=== PATIENT | female | born 2000 | race Caucasian/White ===

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

== ENCOUNTER 2022-04-08 20:47 | Emergency (ER) | payer OTHER, SELFPAY ==
[2022-04-08 20:49] VITALS: BP 141/83; PULSE 102; RESP 19; TEMP 36.9; O2SAT 99
[2022-04-08 21:34] LABS: Basophils Percent Auto 0.3 % (0.2-1.2); Eosinophils Absolute Auto 0.2 K/mm3 (0-0.3); Eosinophils Percent Auto 1.6 % (0-4.4); Hematocrit 44.1 % (37.0-47.0); Hemoglobin 14.2 g/dL (12.0-15.0); Immature Granulocyte Absolute 0.03 K/mm3 (0.00-0.031); Immature Granulocyte Percent A 0.2 % (0-0.5); Lymphocytes Absolute Auto 3.51 K/mm3 (0.9-3.2); Lymphocytes Percent Auto 28.3 % (18.3-44.2); Mean Corpuscular HGB Conc 32.2 g/dl (32-36); Mean Corpuscular Hemoglobin 27.2 pg (26-34); Mean Corpuscular Volume 84.5 fl (80-100); Monocytes Absolute Auto 0.9 K/mm3 (0.1-0.6); Monocytes Percent Auto 7.3 % (2.6-8.5); Neutrophils Absolute Auto 7.7 K/mm3 (1.3-6.7); Neutrophils Percent Auto 62.3 % (45.5-73.1); Platelet Count Result 372 k/mm3 (150-375); Red Blood Count 5.22 M/mm3 (4.2-5.4); Red Cell Distribution Width 12.5 % (11.5-14.5); White Blood Count 12.4 K/mm3 (4.5-10.0)
--- NOTE | 2022-04-08 21:43 | ED.ABDPAIN ---
HPI - Abdominal Pain General Chief Complaint: Abdominal Pain Stated Complaint: abd pain x 4 days and diarrhea Time Seen by Provider: 04/08/22 21:30 History of Present Illness HPI narrative: 21-year-old female presenting to the emergency department for evaluation of of diffuse abdominal pain with associated diarrhea for the last 4 days. Patient reports nausea but no associated vomiting. Related Data Home Medications Medication Instructions Recorded Confirmed norgestimate 0.25 mg-ethinyl tablet 12/01/21 estradiol 35 mcg tablet (Estarylla) Allergies Allergy/AdvReac Type Severity Reaction Status Date / Time No Known Allergies Allergy Unknown Verified 04/08/22 20:48 Review of Systems Review of Systems: CONSTITUTIONAL: Denies fever, chills, or sweats. EYES: Denies visual changes, redness, or discharge. ENT: Denies rhinorrhea, congestion, sore throat, or otalgia. CARDIOVASCULAR: Denies chest pain, palpitations, or edema. RESPIRATORY: Denies cough or dyspnea. GASTROINTESTINAL: See HPI GENITOURINARY: Denies dysuria or hematuria. SKIN: Denies rash or itching. MUSCULOSKELETAL: Denies back pain, joint pain, or myalgia. NEUROLOGIC: Denies headache, numbness, or weakness. [facility] Past Medical History Medical History (Updated 04/09/22 @ 05:37 by Lam Graves MD) No pertinent past medical history Surgical History Surgical History No pertinent past surgical history Family History Family History Mother Family history unknown Father Family history unknown Social History Social History (Updated 12/01/21 @ 16:28 by CARLOS Blackwell, ) Smoking status: Never smoker Alcohol intake: never Substance use: never Additional living arrangements comments: Lives with boyfriend Gender identity (if verbalized by the patient): Female Sexual Orientation (if Verbalized by the Patient): Straight or Heterosexual Spiritual care concerns: No Exam Narrative: APPEARANCE: Well appearing, no pain, no distress, well-nourished. HEAD: normocephalic, atraumatic. EYES: PERRLA/EOMI, conjunctivae clear. NOSE: Normal no drainage NECK: Supple. No adenopathy, no masses. RESPIRATORY: Airway patent, respirations nonlabored. Clear to auscultation bilaterally, no rales, rhonchi, wheezing. CARDIOVASCULAR: Regular rate and rhythm without murmurs rubs or gallops. ABDOMINAL: Soft, midepigastric tenderness to palpation. MUSCULOSKELETAL: Moves all extremities. Strength/ROM intact, No edema, No calf tenderness. NEURO: Alert. Cranial nerves II through XII intact. Grossly intact SKIN: Warm, dry. Normal Color Course Course Emergency Course: Prior to completing her medical work-up patient states that she needs to leave the emergency department and will return at a later date to complete her medical work-up. Patient left AGAINST MEDICAL ADVICE. Vital Signs Vital signs: Vital Signs Temperature 98.5 F 04/08/22 20:49 Pulse Rate 102 H 04/08/22 20:49 Respiratory Rate 19 04/08/22 20:49 Blood Pressure 141/83 H 04/08/22 20:49 Pulse Oximetry 99 04/08/22 20:49 Oxygen Delivery Room Air 04/08/22 20:49 Temperature 98.5 F 04/08/22 20:49 Pulse Rate 102 H 04/08/22 20:49 Respiratory Rate 19 04/08/22 20:49 Blood Pressure 141/83 H 04/08/22 20:49 Pulse Oximetry 99 04/08/22 20:49 Oxygen Delivery Room Air 04/08/22 20:49 MDM - Abdominal Pain Lab Data Result diagrams: 04/08/22 21:25 04/08/22 21:25 Labs: Lab Results 04/08/22 04/08/22 Range/Units 21:25 21:25 WBC 12.4 H (4.5-10.0) K/mm3 RBC 5.22 (4.2-5.4) M/mm3 Hgb 14.2 (12.0-15.0) g/dL Hct 44.1 (37.0-47.0) % MCV 84.5 (80-100) fl MCH 27.2 (26-34) pg MCHC 32.2 (32-36) g/dl RDW 12.5 (11.5-14.5) % Plt Count 372 (150-375) k/mm3 MPV 10.0 (7.4-10.4) fl I
[2022-04-08 21:44] LABS: Alanine Aminotransferase 26 U/L (6-35); Albumin Level 5.1 g/dL (3.7-5.6); Alkaline Phosphatase 62 U/L (45-116); Anion Gap 13 mmol/L (8-16); Aspartate Amino Transferase 39 U/L (14-36); Bilirubin,Total 0.4 mg/dL (0.2-1.3); Blood Urea Nitrogen 19 mg/dL (8-21); Calcium 9.7 mg/dL (8.9-10.7); Carbon Dioxide 27 mmol/L (22-30); Chloride 99 mmol/L (98-107); Estimated CRCL calculation 113 ml/min; Estimated Glomerular Filt Rate > 60; Glucose 85 mg/dL (65-110); Lipase 83 U/L (23-300); Potassium 3.7 mmol/L (3.4-5.0); Sodium 139 mmol/L (134-143)
--- NOTE | 2022-04-08 21:56 | PC.NURSE ---
Upon arrival to room for medication/IV, pt states she is unable to continue abdominal pain workup at this time, she is needing to leave. Pt states she can come back another time. Discussed with patient if leaving prior to medical workup pt would be leaving against medical advice, pt verbalized understanding of information provided and signed AMA forms.
== END 2022-04-08 22:00 | disposition left against medical advice (07) ==
PROVIDERS: Emergency Provider Emergency Medicine; PCP Physician Assistant
DX: R10.9 Unspecified abdominal pain (principal)
CPT/HCPCS: 36415; 80053; 83690; 85025; 99283

== ENCOUNTER 2022-07-17 18:56 | Emergency (ER) | payer OTHER, SELFPAY ==
[2022-07-17 19:21] VITALS: BP 131/64; PULSE 77; RESP 18; TEMP 37.9; O2SAT 100
[2022-07-17 22:37] LABS: Appearance Urine Cloudy (Clear); Bilirubin Urine Negative (Negative); Blood Urine Negative (Negative); Color Urine Yellow (Yellow); Glucose Urine UA Negative (Negative); Ketones Urine Trace mg/dL (Negative); Leukocyte Esterase Ur Trace LEU/UL (Negative); Nitrate Urine Positive (Negative); Protein Urine Negative (Negative); Urobilinogen Urine 0.2 mg/dL (<2.0)
[2022-07-17 22:47] LABS: Bacteria Urine Trace /hpf; Mucus Urine Moderate /lpf; RBC Urine 0-2 /hpf (0-2); Squamous Epithelial Cell Urine Moderate /hpf (Few)
[2022-07-17 22:49] LABS: Add Urine Microscopic? YES
[2022-07-17 23:10] LABS: Influenza A QL RT-PCR Negative (Negative); Influenza B QL RT-PCR Negative (Negative); SARS-CoV-2 RNA PCR Negative
--- NOTE | 2022-07-17 23:34 | ED.GENADULT ---
HPI - General Adult General Chief complaint: Anxiety Stated complaint: two panic attacks Time Seen by Provider: 07/17/22 21:04 History of Present Illness HPI narrative: Patient is a 21-year-old female who presents emerged department with chief complaint of anxiety. Patient states that she has had a couple panic attacks and also has had a feeling as though she is worried that she may ultimately . Patient states she not had any suicidal or homicidal ideations patient also reports that she is had some dysuria and is concerned that she may have a UTI. Related Data Allergies Allergy/AdvReac Type Severity Reaction Status Date / Time No Known Allergies Allergy Unknown Verified 07/17/22 18:56 Review of Systems Review of Systems: A 10 system review of systems was completed on the patient and is negative except for what is stated in the HPI. Nursing and ancillary documentation was reviewed. [facility] Past Medical History Medical History No pertinent past medical history Surgical History Surgical History No pertinent past surgical history Family History Family History Mother Family history unknown Father Family history unknown Social History Social History Smoking status: Never smoker Alcohol intake: never Substance use: never Additional living arrangements comments: Lives with boyfriend Gender identity (if verbalized by the patient): Female Sexual Orientation (if Verbalized by the Patient): Straight or Heterosexual Spiritual care concerns: No Exam Narrative: GENERAL: Well-appearing, well-nourished, and in no acute distress. HEAD: Normocephalic, atraumatic. EYES: PERRLA and EOMI. ENT: Nares clear, no rhinorrhea or epistaxis. Mucous membranes moist. NECK: Supple. CHEST: Clear to auscultation. No respiratory distress. HEART: Regular rate and rhythm. No murmur heard. Normal peripheral pulses. ABDOMEN: Soft, nontender, nondistended, normal active bowel sounds. EXTREMITIES: Normal range of motion. No edema. SKIN: Warm, dry, no rash. NEURO: No focal deficits. Alert and oriented x3. PSYCH: Normal mood and affect. Course Vital Signs Vital signs: Vital Signs Temperature 37.9 C H 07/17/22 19:21 Pulse Rate 77 07/17/22 19:21 Respiratory Rate 18 07/17/22 19:21 Blood Pressure 131/64 07/17/22 19:21 Pulse Oximetry 100 07/17/22 19:21 Oxygen Delivery Room Air 07/17/22 19:21 Temperature 37.9 C H 07/17/22 19:21 Pulse Rate 77 07/17/22 19:21 Respiratory Rate 18 07/17/22 19:21 Blood Pressure 131/64 07/17/22 19:21 Pulse Oximetry 100 07/17/22 19:21 Oxygen Delivery Room Air 07/17/22 19:21 Medical Decision Making Vital Signs Vital Signs: Vital Signs Temperature 37.9 C H 07/17/22 19:21 Pulse Rate 77 07/17/22 19:21 Respiratory Rate 18 07/17/22 19:21 Blood Pressure 131/64 07/17/22 19:21 Pulse Oximetry 100 07/17/22 19:21 Oxygen Delivery Room Air 07/17/22 19:21 Temperature 37.9 C H 07/17/22 19:21 Pulse Rate 77 07/17/22 19:21 Respiratory Rate 18 07/17/22 19:21 Blood Pressure 131/64 07/17/22 19:21 Pulse Oximetry 100 07/17/22 19:21 Oxygen Delivery Room Air 07/17/22 19:21 Lab Data Labs: Lab Results 07/17/22 07/17/22 Range/Units 22:27 22:27 Urine Color Yellow (Yellow) Urine Appearance Cloudy H (Clear) Urine pH 7.0 (5.0-9.0) Ur Specific [place] 1.020 (1.001-1.035) Urine Protein Negative (Negative) mg/dL Urine Glucose (UA) Negative (Negative) mg/dL Urine Ketones Trace (Negative) mg/dL Ur Blood (Man) Negative (Negative) Urine Nitrate Positive H (Negative) Urine Bilirubin Negative (Negative) Urine Urobilinogen 0.2 (<2.0)
[2022-07-17] MEDS: CEPHALEXIN 500 MG CAPSULE PO (23:45)
[2022-07-17] MEDS: hydrOXYzine HCL 25 MG TABLET PO (23:45)
[2022-07-17 23:47] VITALS: BP 127/82; PULSE 87; RESP 16; O2SAT 99
== END 2022-07-17 23:47 | disposition home or self-care (01) ==
PROVIDERS: Emergency Provider Emergency Medicine; PCP Family Medicine
DX: F41.9 Anxiety disorder, unspecified (principal); N39.0 Urinary tract infection, site not specified; Z20.822 Contact with and (suspected) exposure to COVID-19
CPT/HCPCS: 81001; 81025; 87502; 99283; A9270; U0003; U0005

== ENCOUNTER 2023-01-15 20:04 | Emergency (ER) | payer OTHER, SELFPAY ==
[2023-01-15] VITALS (12 sets, daily range): BP systolic 108–146; BP diastolic 60–92; PULSE 77–103; RESP 12–19; TEMP 37; O2SAT 97–100
--- NOTE | ~2023-01-15 | US_ITS ---
EXAMINATION: US OB <= 14 weeks fetus DATE: 01/15/2023 22:40 INDICATION: Vaginal bleeding during first trimester TECHNIQUE: Real-time pelvic ultrasound utilizing transabdominal probe was performed. The elvira harman radiologist was not present for the study. COMPARISON: None. FINDINGS: The uterus measures 9.6 x 5.5 cm cm. There is an intrauterine gestational sac. A 4 mm yolk sac and f etal pole are identified. The crown rump length measures 3 mm, which correlates with an estimated ges tational age of 6 weeks and 0 days. heart motion appears to be evident on the cine grayscale im aging however per notation of telegraph dispatcher due to the small size of a pole was unable to be visu alized sufficiently for quantitation of heart rate by M-mode Doppler. There is a 14 x 8 x 2 mm anecho ic subchorionic hemorrhage along the gestational sac. The right ovary is not visualized. The left ovary measures 3.1 x 1.7 x 1.7 cm. After flow is identifi ed at the left ovary on color Doppler. Prominent around the periphery of a 1.7 cm corpus luteum cyst. There is no free fluid in the pelvis. IMPRESSION: 1. Single living fetus with visible heart motion on cine grayscale imaging but unable to be quantitat ed by M-mode Doppler. 2. Gestational age by ultrasound of 6 weeks 0 day(s) +/- 4 day(s) with ultrasound estimated date of delivery ([facility]) of 09/10/2023. 3. Small subchorionic hematoma. Reviewed, dictated and finalized at location A. IMPRESSION: 1. Single living fetus with visible heart motion on cine grayscale imaging but unable to be quantitated by M-mode Doppler. 2. Gestational age by ultrasound of 6 weeks 0 day(s) +/- 4 day(s) with ultraso und estimated date of delivery ([facility]) of 09/10/2023. 3. Small subchorionic hematoma.
--- NOTE | 2023-01-15 20:21 | PC.NURSE ---
medical office secretary notified to contact ultrasound.
--- NOTE | 2023-01-15 21:04 | ED.FEMALEGU ---
HPI - Female Genitourinary General Chief complaint: Vaginal Bleeding <Alexa Crum PA-C - Last Filed: 01/16/23 02:51> Stated complaint: nausea, positive home test <FRANCISCO Hill Last Filed: 01/16/23 02:51> Time Seen by Provider: 01/15/23 20:49 <Alexa Crum PA-C - Last Filed: 01/16/23 02:51> History of Present Illness HPI Narrative: 22-year-old female, , LMP 4/2 reports for evaluation of positive test and vaginal spotting for 3 days. Patient states she took an at-home test today that was positive, went to urgent care and was sent to the ED. She is currently on her second round of ABX form urgent care (PCN then amoxicillin) for strep throat, cultures are pending. She reports she has a smidge of a sore throat, and that her main reason to go to the urgent care originally was due to the nausea and abdominal pain. States she did not take a test at urgent care because the tests they had were . She reports her last period was normal. Her spotting the past 2-3 days has only been present when she wipes. States she has been wearing a pad w/o blood on the pad. Denies urinary complaints, headache, vision changes, edema, fever, body aches, chills, CP, SOB, lightheadedness. She denies concern for STDs, no vaginal discharge. Declines empiric treatment for STDs. <Alexa Crum PA-C - Last Filed: 01/16/23 02:51> Related Data Allergies/Adverse reactions: Allergies Allergy/AdvReac Type Severity Reaction Status Date / Time No Known Allergies Allergy Unknown Verified 01/15/23 21:49 <FRANCISCO Hill Last Filed: 01/16/23 02:51> Review of Systems Review of Systems: CONSTITUTIONAL: Denies fever, chills EYES: Denies visual changes, redness, or discharge. ENT: Denies rhinorrhea, congestion, sore throat, or otalgia. CARDIOVASCULAR: Denies chest pain, palpitations, or edema. RESPIRATORY: Denies cough or dyspnea. GASTROINTESTINAL: See HPI GENITOURINARY: Denies dysuria or hematuria. SKIN: Denies rash or itching. MUSCULOSKELETAL: Denies back pain, joint pain, or myalgia. NEUROLOGIC: Denies headache, numbness, dizziness, or weakness. PSYCHIATRIC: Denies anxiety or depression. <Alexa Crum PA-C - Last Filed: 01/16/23 02:51> [facility] Past Medical History Medical History: Medical History No pertinent past medical history <Alexa Crum PA-C - Last Filed: 01/16/23 02:51> Surgical History Surgical History: Surgical History No pertinent past surgical history <Alexa Crum PA-C - Last Filed: 01/16/23 02:51> Family History Family History: Family History Mother Family history unknown Father Family history unknown <Alexa Crum PA-C - Last Filed: 01/16/23 02:51> Social History Social History: Social History Smoking status: Never smoker Alcohol intake: never Substance use: never Additional living arrangements comments: Lives with boyfriend Gender identity (if verbalized by the patient): Female Sexual Orientation (if Verbalized by the Patient): Straight or Heterosexual Spiritual care concerns: No <Alexa Crum PA-C - Last Filed: 01/16/23 02:51> Exam Narrative: GENERAL: Well-appearing, in no acute distress. HEAD: Normocephalic EYES: PERRLA ENT: Nares clear. Mucous membranes moist. Oropharynx without tonsillar hypertrophy exudate or other lesions. No oropharynx erythema or edema. No uvular deviation. NECK: Supple. CHEST: No respiratory distress. Clear to auscultation, no adventitious breath sounds. HEART: Regular rate and rhythm. No murmur heard. Normal peripheral pulses. ABDOMEN: Soft, nontender, normal active bowel sounds. No guard
[2023-01-15 21:55] LABS: Appearance Urine Clear (Clear); Bilirubin Urine Negative (Negative); Blood Urine Negative (Negative); Color Urine Yellow (Yellow); Glucose Urine UA Negative (Negative); Ketones Urine Trace mg/dL (Negative); Leukocyte Esterase Ur Negative LEU/UL (Negative); Nitrate Urine Negative (Negative); Protein Urine Negative (Negative); Specific Grav Ur 1.022 (1.001-1.035)
[2023-01-15 21:59] LABS: Basophils Percent Auto 0.3 % (0.2-1.2); Eosinophils Absolute Auto 0.2 K/mm3 (0-0.3); Eosinophils Percent Auto 1.2 % (0-4.4); Hematocrit 43.2 % (37.0-47.0); Hemoglobin 14.7 g/dL (12.0-15.0); Immature Granulocyte Absolute 0.04 K/mm3 (0.00-0.031); Immature Granulocyte Percent A 0.3 % (0-0.5); Lymphocytes Percent Auto 19.4 % (18.3-44.2); Mean Corpuscular Hemoglobin 28.5 pg (26-34); Mean Corpuscular Volume 83.7 fl (80-100); Mean Platelet Volume 10.2 fl (7.4-10.4); Neutrophils Absolute Auto 8.7 K/mm3 (1.3-6.7); Neutrophils Percent Auto 70.8 % (45.5-73.1); Platelet Count Result 345 k/mm3 (150-375); Red Blood Count 5.16 M/mm3 (4.2-5.4); White Blood Count 12.4 K/mm3 (4.5-10.0)
[2023-01-15 22:05] LABS: Alanine Aminotransferase 17 U/L (6-35); Albumin Level 4.8 g/dL (3.5-5.1); Alkaline Phosphatase 52 U/L (38-126); Anion Gap 9 mmol/L (8-16); Aspartate Amino Transferase 24 U/L (14-36); Bilirubin,Total 0.4 mg/dL (0.2-1.3); Blood Urea Nitrogen 8 mg/dL (7-17); Carbon Dioxide 27 mmol/L (22-30); Chloride 100 mmol/L (98-107); Estimated CRCL calculation 130 ml/min; Estimated Glomerular Filt Rate > 60; Glucose 88 mg/dL (65-110); Potassium 3.7 mmol/L (3.4-5.0); Sodium 136 mmol/L (137-145)
[2023-01-15 22:10] LABS: Add Urine Microscopic? NO
== END 2023-01-15 23:53 | disposition home or self-care (01) ==
PROVIDERS: Emergency Medicine; Emergency Provider Physician Assistant; PCP Family Medicine
DX: O46.90 Antepartum hemorrhage, unspecified, unspecified trimester (principal); O26.899 Other specified pregnancy related conditions, unspecified trimester; R11.0 Nausea; Z3A.00 Weeks of gestation of pregnancy not specified
CPT/HCPCS: 36415; 76801; 80053; 81003; 81025; 84702; 85025; 85461; 86850; 86900; 86901; 99284

== ENCOUNTER 2023-08-07 17:01 | Observation (INO) | payer OTHER, SELFPAY ==
[2023-08-07 17:19] VITALS: BMI 34.0
--- NOTE | 2023-08-07 17:20 | OBADM ---
This patient, Emma Neville, admitted to the OB room OB Post 116 for observation. Patient/family oriented to hospital policies and general routines including ID bracelet, bed and alarms, visiting hours, pain management, procedures, bathroom and other care routines, personal items, smoking policy, room service/diet, and visiting hours. Patient/Family are encouraged to report perceived risks to care and to ask questions if they do not understand what they are told or what they should do.
[2023-08-07 17:30] VITALS: BP 116/67; PULSE 97
--- NOTE | 2023-08-07 17:43 | PC.NURSE ---
Dr. Bob notified of patient's arrival on unit and complaints of contractions. No vaginal bleeding or leaking of fluids. Orders received to send urinalysis and SVE.
[2023-08-07 17:45] VITALS: BP 118/70; PULSE 89
[2023-08-07 17:57] LABS: Appearance Urine Cloudy (Clear); Bacteria Urine 3+ /hpf; Bilirubin Urine Negative (Negative); Blood Urine Negative (Negative); Color Urine Yellow (Yellow); Glucose Urine UA Trace mg/dL (Negative); Ketones Urine Negative (Negative); Leukocyte Esterase Ur 2+ LEU/UL (Negative); Need Manual Microscopic Reviewed; Nitrate Urine Negative (Negative); Non Pathogenic Casts 0-2; Protein Urine Trace mg/dL (Negative); Specific Grav Ur 1.022 (1.001-1.035); Squamous Epithelial Cell Urine Moderate /hpf (Few); Urobilinogen Urine 0.2 mg/dL (<2.0); WBC Urine 51-100 /hpf
--- NOTE | 2023-08-07 17:58 | PC.NURSE ---
SVE- Closed/thick/high
[2023-08-07 18:01] VITALS: BP 118/70; PULSE 80
[2023-08-07 18:02] LABS: Add Urine Microscopic? YES
--- NOTE | 2023-08-07 18:09 | PC.NURSE ---
Dr. Bob notified of lab results, okay to discharge
--- NOTE | 2023-08-19 08:14 | PM.OBTRLD ---
OB - Triage/Final Diagnosis Visit Information Comments/Additional reasons for admission: I have assessed the risk for this patient, Emma Neville, and determined that she would benefit from observation care. Evaluation Laboratory results: Laboratory Tests 08/07/23 17:13 Urine Color Yellow Urine Appearance Cloudy H Urine pH 6.0 Ur Specific [place] 1.022 Urine Protein Trace Urine Glucose (UA) Trace H Urine Ketones Negative Ur Blood (Man) Negative Urine Nitrate Negative Urine Bilirubin Negative Urine Urobilinogen 0.2 Add Ur Microanalysis Reviewed Leukocyte Esterase Rfl 2+ H Urine RBC 6-10 H Urine WBC 51-100 H Ur Squamous Epith Cells Moderate Urine Bacteria 3+ H Urine Casts 0-2 Final Diagnosis (1) False labor: Code(s): O47.9 - False labor, unspecified Status: Acute
== END 2023-08-07 18:20 | disposition home or self-care (01) ==
PROVIDERS: Admitting Provider Obstetrics & Gynecology; PCP Family Medicine; Visit Provider Obstetrics & Gynecology
DX: O47.03 False labor before 37 completed weeks of gestation, third trimester (principal); Z3A.35 35 weeks gestation of pregnancy
CPT/HCPCS: 59025; 81001; 87086; 87088; G0378; G0379

== ENCOUNTER 2023-09-11 04:05 | Inpatient (IN) | payer OTHER, SELFPAY ==
[2023-09-11] VITALS (252 sets, daily range): BP systolic 93–146; BP diastolic 45–116; PULSE 63–180; RESP 16–19; TEMP 36.8–37.9; O2SAT 73–100; BMI 36.7
--- NOTE | 2023-09-11 04:33 | LDADM ---
This patient, Emma Neville, was admitted to Labor/Delivery/Recovery 106 on 09/11/23 at 04:05. Plans for labor, pain management and were discussed with patient. Patient/family oriented to hospital policies and general routines including ID bracelet, bed and alarms, visiting hours, pain management, procedures, bathroom and other care routines, personal items, smoking policy, room service/diet and guest tray routines, security routines, and visiting hours. Patient/Family are encouraged to report perceived risks to care and to ask questions if they do not understand what they are told or what they should do. See OBIX for further documentation.
[2023-09-11 04:39] LABS: Basophils Percent Auto 0.2 % (0.2-1.2); Eosinophils Absolute Auto 0.1 K/mm3 (0-0.3); Eosinophils Percent Auto 0.9 % (0-4.4); Hematocrit 34.8 % (37.0-47.0); Hemoglobin 10.9 g/dL (12.0-15.0); Immature Granulocyte Absolute 0.09 K/mm3 (0.00-0.031); Immature Granulocyte Percent A 0.7 % (0-0.5); Lymphocytes Absolute Auto 2.51 K/mm3 (0.9-3.2); Lymphocytes Percent Auto 18.3 % (18.3-44.2); Mean Corpuscular HGB Conc 31.3 g/dl (32-36); Mean Corpuscular Hemoglobin 25.7 pg (26-34); Mean Corpuscular Volume 82.1 fl (80-100); Mean Platelet Volume 11.6 fl (7.4-10.4); Monocytes Absolute Auto 0.9 K/mm3 (0.1-0.6); Monocytes Percent Auto 6.3 % (2.6-8.5); Neutrophils Absolute Auto 10.1 K/mm3 (1.3-6.7); Neutrophils Percent Auto 73.6 % (45.5-73.1); Platelet Count Result 251 k/mm3 (150-375); Red Blood Count 4.24 M/mm3 (4.2-5.4); Red Cell Distribution Width 14.9 % (11.5-14.5); White Blood Count 13.7 K/mm3 (4.5-10.0)
[2023-09-11] MEDS: LACTATED RINGERS 1,000 ML 125 ML IV CONT ×4 (05:45→23:41)
[2023-09-11] MEDS: AMPICILLIN 2 GM/NS 100 ML 2 GM/100 ML BAG IVPB ×2 (05:45→23:53)
[2023-09-11] MEDS: OXYTOCIN 30 UNITS/NS 500 ML 30 UNITS/500 ML BAG IV CONT (08:04)
--- NOTE | 2023-09-11 08:20 | WPDHPUPDATE1 ---
History and Physical Update Update Date/Time: 09/11/23 08:20 22-year-old 1 at term who presents with ruptured membranes. She is now in a starting into labor. She has painful contractions. She has had some cervical change. She is 3 cm, 50%, -2. She is stable. There is reassuring heart tones. She will begin Pitocin. Expectant management History and Physical has been reviewed, including an updated exam of the patient. There are NO changes in the patient's condition. Risks, benefits, and alternatives have been discussed and questions answered. Patient agrees to proceed with procedure.
[2023-09-11] MEDS: fentaNYL CITRATE INJ (*CRX) 100 MCG/2 ML VIAL IV PUSH (09:13)
[2023-09-11] MEDS: SODIUM CHLORIDE 0.9% IV 300 ML 600 ML I-UTERINE (10:03)
[2023-09-11] MEDS: fentaNYL CITRATE INJ (*CRX) 100 MCG/2 ML VIAL 50 MCG IV PUSH (10:22)
--- NOTE | 2023-09-11 10:22 | WPDANESEPP ---
Anes - Eval Pre Procedure Procedure: Labor epidural Date/Time: 09/11/23 10:22 Surgeon: Nadine Preop Diagnosis: Pain during labor Pre Op Diagnosis: Leaking, Contactions Patient Data Age: 22 Gender: F Height: 1.6 m Weight: 94 kg Last Vital Signs Temp 37.0 C 09/11/23 10:03 Pulse 151 H 09/11/23 10:16 Resp 19 09/11/23 10:03 BP 146/104 H 09/11/23 10:16 Pulse Ox 98 09/11/23 10:18 O2 Del Method Room Air 09/11/23 04:31 Allergies Allergy/AdvReac Type Severity Reaction Status Date / Time No Known Allergies Allergy Unknown Verified 09/11/23 04:40 Laboratory Tests 09/11/23 04:27 WBC 13.7 H K/mm3 (4.5-10.0) RBC 4.24 M/mm3 (4.2-5.4) Hgb 10.9 L D g/dL (12.0-15.0) Hct 34.8 L % (37.0-47.0) MCV 82.1 fl (80-100) MCH 25.7 L pg (26-34) MCHC 31.3 L g/dl (32-36) RDW 14.9 H % (11.5-14.5) Plt Count 251 k/mm3 (150-375) MPV 11.6 H fl (7.4-10.4) Immature Gran % (Auto) 0.7 H % (0-0.5) Neut % (Auto) 73.6 H % (45.5-73.1) Lymph % (Auto) 18.3 % (18.3-44.2) [place] % (Auto) 6.3 % (2.6-8.5) Eos % (Auto) 0.9 % (0-4.4) Baso % (Auto) 0.2 % (0.2-1.2) Lymph # (Auto) 2.51 K/mm3 (0.9-3.2) [place] # (Auto) 0.9 H K/mm3 (0.1-0.6) Eos # (Auto) 0.1 K/mm3 (0-0.3) Baso # (Auto) 0.0 K/mm3 (0.0-0.1) Abs Immat Gran (auto) 0.09 H K/mm3 (0.00-0.031) Absolute Neuts (auto) 10.1 H K/mm3 (1.3-6.7) Absolute Nucleated RBC 0.0 K/mm3 (0.0-0.012) Nucleated RBC % 0.0 % (0.0-0.2) RPR Pending Blood Type A Positive Antibody Screen Negative Patient hx anesthesia problems: none Family hx anesthesia problems: none Results Review: All pre-operative results and documents have been reviewed as part of the pre-operative evaluation. [facility] Past Medical History Medical History No pertinent past medical history Surgical History Surgical History No pertinent past surgical history Family History Family History Mother Family history unknown Father Family history unknown Social History Social History Smoking status: Never smoker Alcohol intake: never Substance use: never Do You Feel Safe in your Home?: Yes Lack of Transportation: No Lack of Food: Never True Current Housing: I Have Housing Concerned About Future Housing: No Difficulty Paying Gas/Electric Bills: No Difficulty Paying for Meds: No Currently Unemployed: No Education: High School Diploma/GED Difficulty w/ Childcare or Family Care: No Additional living arrangements comments: Lives with boyfriend Gender identity (if verbalized by the patient): Female Sexual Orientation (if Verbalized by the Patient): Straight or Heterosexual Spiritual care concerns: No Exam Day of Procedure 09/11/23 10:22 Patient weight: obese Heart: regular rate and rhythm Lungs: clear to auscultation Airway: Mallampati scale Neurological: alert and oriented
[2023-09-11] MEDS: SODIUM CHLORIDE 0.9% IV 1,000 ML 150 ML I-UTERINE (12:55)
[2023-09-11 16:56] LABS: Rapid Plasma Reagin Non-Reactive (NonReactive)
[2023-09-12] VITALS (17 sets, daily range): BP systolic 107–131; BP diastolic 60–78; PULSE 78–130; RESP 16–18; TEMP 36–36.6; O2SAT 98–100
[2023-09-12] MEDS: OXYTOCIN 30 UNITS/NS 500 ML 30 UNITS/500 ML BAG 999 UNITS IV CONT (00:12)
[2023-09-12] MEDS: fentaNYL CITRATE INJ (*CRX) 100 MCG/2 ML VIAL 50 MCG IV PUSH (00:20)
--- NOTE | 2023-09-12 00:31 | P.PCNOB_ITS ---
OB - Vaginal Delivery Note Procedure Delivery date: 09/12/23 Induction method: None Delivery augmentation: Pitocin Delivery monitor: External FHT and Internal Uterine Route of delivery: Laceration Description: Labial Delivery repair: vicryl Specimen: No Quantitative Blood Loss (ml): 300 Anesthesia type: Epidural Complications: No immediate complications [place] Baby Date of : 09/12/23 Time of : 00:10 Weeks of gestation at delivery: 40 gender: Female Weight (pounds): 7 Weight (ounces): 4 presentation: vertex score one minute: 9 score five minutes: 9
[2023-09-12] MEDS: OXYTOCIN 30 UNITS/NS 500 ML 30 UNITS/500 ML BAG 125 UNITS IV CONT (00:40)
--- NOTE | 2023-09-12 02:48 | OBPPTRN ---
Patient transferred to post room # 291 via wheelchair. Support person present. Oriented to unit, room, information board, rooming in, admission packet and security measures. Patient verbalizes understanding.
[2023-09-12] MEDS: WITCH HAZEL 40 PADS 1 PAD (03:03)
[2023-09-12] MEDS: BENZOCAINE 20% AER SPR (*SP) 56 GM CAN 1 SPRAY (03:03)
[2023-09-12] MEDS: IBUPROFEN 600 MG TABLET PO ×2 (04:30→19:30)
--- NOTE | 2023-09-12 07:56 | PM.OBPNVD ---
OB - PN: Subj Subjective Date/time seen: 09/12/23 07:56 Interval history: pp day 1 doing well OB - PN: Obj Data Labs 09/11/23 04:27 Labs: Laboratory Results - last 24 hr 09/11/23 04:27 RPR Non-reactive OB - PN A/P Plan day: 1 Plan: routine care Time Spent With Patient Time: Total time spent is greater than 50% in coordination of care (as documented) at patient's floor/unit and/or counseling patient: Review of Systems Review of Systems: All systems reviewed & are unremarkable except as noted in HPI and below Exam Const: General: cooperative, healthy appearing and comfortable Resp: Effort & Inspection: normal respiratory effort Cardio: Rate: regular rate Skin: General skin exam: normal color Neuro: General: patient oriented x3 Psych: Appearance: grossly normal
--- NOTE | 2023-09-12 09:26 | WPDANLDPN2 ---
Anes-Prog Note L&D Date/Time: 09/12/23 09:26 Comfortable throughout: labor and delivery Neuraxial method: epidural Epidural/Spinal procedure site: clean & non-tender Neuro status: Neuro function grossly intact. Cardiovascular status: normal Respiratory status: normal Airway patency: baseline Mental status: baseline Post-Op hydration status: normal Vital Signs: Last Vital Signs Temp 96.8 F L 09/12/23 08:25 Pulse 78 09/12/23 08:25 Resp 16 09/12/23 08:25 BP 107/68 09/12/23 08:25 Pulse Ox 99 09/12/23 08:25 O2 Del Method Room Air 09/12/23 03:00 Pain score (VAS): 0 I/O: Intake & Output 09/11/23 09/12/23 09/12/23 23:59 07:59 15:59 Intake Total 2000 Output Total 100 Balance 1999 - Post-procedural complaints: none Patient feedback: Patient satisfied with anesthetic care.
[2023-09-12] MEDS: ACETAMINOPHEN 325 MG TABLET 650 MG PO (19:30)
[2023-09-12] MEDS: POLYSACCHARIDE IRON COMPLEX 150 MG CAPSULE PO (19:30)
[2023-09-13 04:45] LABS: Hematocrit 28.4 % (37.0-47.0); Hemoglobin 8.7 g/dL (12.0-15.0)
--- NOTE | 2023-09-13 07:54 | PM.OBPNVD ---
OB - PN: Subj Subjective Date/time seen: 09/13/23 07:54 Interval history: pp day 1 doing well plab d/c home OB - PN: Obj Data Labs 09/13/23 04:11 Labs: Laboratory Results - last 24 hr 09/13/23 04:11 Hgb 8.7 L Hct 28.4 L OB - PN A/P Plan day: 2 Plan: routine care and discharge home Time Spent With Patient Time: Total time spent is greater than 50% in coordination of care (as documented) at patient's floor/unit and/or counseling patient: Review of Systems Review of Systems: All systems reviewed & are unremarkable except as noted in HPI and below Exam Const: General: cooperative and healthy appearing Chest: Chest palpation & inspection: normal inspection of the chest Cardio: Rate: regular rate GI: Inspection: normal to inspection Skin: General skin exam: normal color Neuro: General: patient oriented x3
--- NOTE | 2023-09-13 07:56 | PM.OBDSVD ---
DS: Admitting Diagnosis Discharge Date 09/13/23 Admitting Diagnosis Labor DS: Discharge Diagnosis Discharge Diagnosis (1) Vaginal delivery: Code(s): O80 - Encounter for full-term uncomplicated delivery Status: Acute OB - DS: Summary OB Procedures : None OB Procedures Intrapartum: Spontaneous Vag Delivery OB Procedures: : None Peripartum Data Laceration Description: Labial Time Spent with Patient Time attestation: Total time spent providing and/or coordinating discharge services: DS: Data Data Completed and Pending Labs on day of discharge: Labs from last 24 hours 09/13/23 04:11 Hgb 8.7 L Hct 28.4 L Discharge Plan Discharge Attending physician on discharge: Magaly Mccoy Discharging Clinician: Robyn Mcgill Patient Disposition: Home, Self-Care Activity: pelvic rest Diet: regular Patient Instructions: Antibiotic Form Stand Alone Forms: General Discharge Information Follow-up/Referrals: Magaly Mccoy MD [Physician] - 4 Weeks Discharge Medications: New ibuprofen 600 mg Tablet 600 mg PO Q6H PRN (Reason: Cramping) Qty: 30 0RF Date of admission: 09/11/23 04:05 Primary Care Provider: Álvaro,Jose Faulkner Admitting Provider: Magaly Mccoy Attending physician on admission: Magaly Mccoy Condition: Stable
[2023-09-13 08:00] VITALS: BP 136/80; PULSE 84; RESP 16; TEMP 37.1; O2SAT 100
[2023-09-13] MEDS: POLYSACCHARIDE IRON COMPLEX 150 MG CAPSULE PO (08:01)
[2023-09-13] MEDS: ACETAMINOPHEN 325 MG TABLET 650 MG PO (08:02)
[2023-09-13] MEDS: MULTIVIT/MIN/PREN/FOL AC/IRON TABLET 1 TAB PO (08:02)
[2023-09-13] MEDS: DOCUSATE SODIUM 100 MG CAPSULE PO (08:02)
[2023-09-13] MEDS: IBUPROFEN 600 MG TABLET PO (08:02)
--- NOTE | 2023-09-13 09:45 | PC.NURSE ---
Patient viewed the discharge video Mother & Baby Care, The First Two Weeks . Patient was given the opportunity and encouraged to ask questions. Patient verbalized understanding of information shared and has been given the mother/baby guide for home reference.
--- NOTE | 2023-09-13 15:08 | PCCCNOTE ---
Recvd consult due to pt. asked for resources. Met with pt., pt's friend Deb, and pt's CELY Adhikari. Pt. reports she and CELY Adhikari, and Onofre's three children, and will be living in the home. Pt. reports has all necessary baby supplies, and has recv'd the car seat from executive staff assistant here at [place]. Pt. reports will be looking into WIC and Food [place]. Pt. reports her friend Deb, and CELY Adhikari's family will assist as needed. Pt. denies any prior DCFS involvement. Pt. denies drug use during . Pt. reports current with counselor through [facility]. Pt. denies suicidal or homicidal ideations. Pt. reports feels safe in her home and denies any care coordination needs. Provided pt. with counseling, psych, and resources. ANGÉLICA Lopes reports pt. is discharging home this afternoon.
[2023-09-15 13:58] VITALS: BP 139/74; PULSE 75; RESP 18; TEMP 36.6; O2SAT 99
== END 2023-09-13 15:36 | disposition home or self-care (01) | DRG 560 ==
LOC: ANHLDR 04:32 → ANHOB2 09-12 03:18
PROVIDERS: Admitting Provider Obstetrics & Gynecology; PCP Family Medicine; Visit Provider Obstetrics & Gynecology
DX: O77.0 Labor and delivery complicated by meconium in amniotic fluid (principal); O69.81X0 Labor and delivery complicated by cord around neck, without compression, not applicable or unspecified; O70.1 Second degree perineal laceration during delivery; Z3A.40 40 weeks gestation of pregnancy; Z37.0 Single live birth
CPT/HCPCS: 36415; 85014; 85018; 85025; 86592; 86850; 86900; 86901; A9270; J0290; J2590; J2795; J3010; J7030; J7120

== ENCOUNTER 2024-01-08 21:01 | Emergency (ER) | payer OTHER, SELFPAY ==
[2024-01-08 21:26] VITALS: BP 115/68; PULSE 94; RESP 16; TEMP 36.3; O2SAT 99
--- NOTE | 2024-01-08 23:13 | ECG_ITS ---
SEE SCANNED COPY FOR CONFIRMED REPORT MTDD
--- NOTE | 2024-01-08 23:15 | ED.GENADULT ---
HPI - General Adult General Chief complaint: Headache Stated complaint: headache, dizzy Time Seen by Provider: 01/08/24 22:49 Source: patient Limitations: no limitations History of Present Illness HPI narrative: 23-year-old female here with multiple complaints. Generally her major complaint is a headache it has been ongoing for several months now. Comes and goes. Seems to be the entire head and feels like an aching sensation. Today also felt like she had some burning in her chest when she ate some food for short time. She has a lot of medical problems in her family including a rare cancer in her grandmother And some strokes in old age in her grandfather and they are all very concerning to her and making her very anxious which is why she wanted to be evaluated. She is feeling better at this point. Related Data Allergies Allergy/AdvReac Type Severity Reaction Status Date / Time No Known Allergies Allergy Unknown Verified 01/08/24 21:34 Review of Systems Review of Systems: All systems reviewed & are unremarkable except as noted in HPI and below PMFSH Past Medical History Medical History No pertinent past medical history Surgical History Surgical History No pertinent past surgical history Family History Family History Mother Family history unknown Father Family history unknown Social History Social History Smoking status: Never smoker Alcohol intake: never Substance use: never Do You Feel Safe in your Home?: Yes Lack of Transportation: No Lack of Food: Never True Current Housing: I Have Housing Concerned About Future Housing: No Difficulty Paying Gas/Electric Bills: No Difficulty Paying for Meds: No Currently Unemployed: No Education: High School Diploma/GED Difficulty w/ Childcare or Family Care: No Additional living arrangements comments: Lives with boyfriend Gender identity (if verbalized by the patient): Female Sexual Orientation (if Verbalized by the Patient): Straight or Heterosexual Spiritual care concerns: No Exam Narrative: Constitutional: Generally well appearing, no acute distress Head: Atraumatic, no deformities. Eyes: Pupils equal, round, and reactive to light. Neck: Supple, no tracheal deviation, no JVD. ENMT: Mucous membranes moist Cardiovascular: S1, S2 auscultated. No murmurs, rubs, or gallops. No S3/S4. Normal Distal pulses. No peripheral edema. Respiratory: Lung sounds equal. No wheezes, rales, or rhonchi. Gastrointestinal: Abdomen was soft and non-tender. Non-distended. No rebound or guarding. Genitourinary: Deferred Musculoskeletal: Normal muscle tone and bulk. No obvious deformities or tenderness over extremities. Skin: No rashes. Neurological: Strength 5/5 in extremities. Cranial nerves I-XII grossly intact. Distal sensation intact. Mental Status: Awake, alert and oriented x3. Follows commands Course Vital Signs Vital signs: Vital Signs Temperature 36.3 C L 01/08/24 21:26 Pulse Rate 94 01/08/24 21:26 Respiratory Rate 16 01/08/24 21:26 Blood Pressure 115/68 01/08/24 21:26 Pulse Oximetry 99 01/08/24 21:26 Oxygen Delivery Room Air 01/08/24 21:26 Temperature 36.3 C L 01/08/24 21:26 Pulse Rate 90 01/08/24 23:36 Respiratory Rate 15 01/08/24 23:36 Blood Pressure 118/60 01/08/24 23:36 Pulse Oximetry 99 01/08/24 23:36 Oxygen Delivery Room Air 01/08/24 21:26 Medical Decision Making [facility] Narrative Medical decision making narrative: Well-appearing 23-year-old female presenting for multiple complaints including headache has been on and off for several months now, some occasional aching chest pain after eating primarily. She is feeling better now. On exam, vitals are r
[2024-01-08] MEDS: KETOROLAC 30 MG/ML VIAL (*BKC) IM (23:31)
[2024-01-08 23:36] VITALS: BP 118/60; PULSE 90; RESP 15; O2SAT 99
[2024-01-08 23:52] LABS: Pregnancy On Board Control Positive; Urine Pregnancy Test Negative
== END 2024-01-09 00:35 | disposition home or self-care (01) ==
PROVIDERS: Emergency Provider Emergency Medicine; PCP Family Medicine
DX: R51.9 Headache, unspecified (principal)
CPT/HCPCS: 81025; 93005; 96372; 99283; J1885

== ENCOUNTER 2024-01-21 01:33 | Emergency (ER) | payer OTHER, SELFPAY ==
[2024-01-21 01:33] VITALS: BP 129/79; PULSE 72; RESP 16; TEMP 36.7; O2SAT 100
[2024-01-21] MEDS: diphenhydrAMINE HCl INJ 50 MG/ML VIAL IV PUSH (02:27)
[2024-01-21] MEDS: KETOROLAC 15 MG/ML VIAL (*BKC) IV PUSH (02:29)
[2024-01-21] MEDS: SODIUM CHLORIDE 0.9% IV 1,000 ML 999 ML IV CONT (02:29)
[2024-01-21] MEDS: METOCLOPRAMIDE HCL INJ 10 MG/2 ML VIAL IV PUSH (02:29)
[2024-01-21 03:07] VITALS: BP 142/88; PULSE 82; RESP 18; O2SAT 100
--- NOTE | 2024-01-21 04:12 | ED.GENADULT ---
HPI - General Adult General Chief complaint: Headache Stated complaint: headache, nausea Time Seen by Provider: 01/21/24 03:38 History of Present Illness HPI narrative: Patient is a 39-year-old female who presents to the emergency department this evening complaining of headache. Patient states that [id number] medications have not helped. She has been worked up for these headaches that she has been getting more frequently recently and she was told that her workup was negative. Patient has not followed up with a neurologist regarding her headaches. Patient finally decided to come to the emergency department for further evaluation. She denies any additional symptoms including any blurry vision, focal weakness, numbness or tingling. Patient also denies any fevers or chills. No additional symptoms or concerns at this time. Related Data Allergies Allergy/AdvReac Type Severity Reaction Status Date / Time No Known Allergies Allergy Unknown Verified 01/21/24 01:43 Review of Systems Review of Systems: All systems are reviewed and are negative unless stated otherwise in the HPI. [facility] Past Medical History Medical History No pertinent past medical history Surgical History Surgical History No pertinent past surgical history Family History Family History Mother Family history unknown Father Family history unknown Social History Social History Smoking status: Never smoker Alcohol intake: never Substance use: never Do You Feel Safe in your Home?: Yes Lack of Transportation: No Lack of Food: Never True Current Housing: I Have Housing Concerned About Future Housing: No Difficulty Paying Gas/Electric Bills: No Difficulty Paying for Meds: No Currently Unemployed: No Education: High School Diploma/GED Difficulty w/ Childcare or Family Care: No Additional living arrangements comments: Lives with boyfriend Gender identity (if verbalized by the patient): Female Sexual Orientation (if Verbalized by the Patient): Straight or Heterosexual Spiritual care concerns: No Exam Narrative: General: Alert, awake, afebrile, in no acute distress. HEENT: PERRL, no rhinorrhea, no post nasal drip, oropharynx clear, no temporal tenderness to palpation. Neck: Trachea midline, no JVD, no lymphadenopathy. Cardiovascular: Regular rate and rhythm, no murmurs, rubs or gallops, no peripheral edema. Respiratory: Clear to auscultation bilaterally, no tachypnea, no wheezing, no rhonchi, no rubs, no respiratory distress. Abdomen: Soft, nontender, nondistended, no rebound, no guarding, no peritoneal signs. Musculoskeletal: No joint swelling or deformity, normal muscle tone. Skin: No rashes or petechia, no signs of infection. Psychiatric: Alert and oriented, normal behavior and judgment for situation. Neurological: Alert and oriented to person, place, and time. Follows all commands. No focal deficits, speech is clear and fluent. Course Vital Signs Vital signs: Vital Signs Temperature 98.0 F 01/21/24 01:33 Pulse Rate 72 01/21/24 01:33 Respiratory Rate 16 01/21/24 01:33 Blood Pressure 129/79 01/21/24 01:33 Pulse Oximetry 100 01/21/24 01:33 Oxygen Delivery Room Air 01/21/24 01:33 Temperature 98.0 F 01/21/24 01:33 Pulse Rate 82 01/21/24 03:07 Respiratory Rate 18 01/21/24 03:07 Blood Pressure 142/88 H 01/21/24 03:07 Pulse Oximetry 100 01/21/24 03:07 Oxygen Delivery Room Air 01/21/24 01:33 Medical Decision Making MDM Narrative Medical decision making narrative: The patient was evaluated by myself in the emergency department. History is obtained from patient who is an independent historian and physical exam was performed. External medical recor
== END 2024-01-21 04:19 | disposition home or self-care (01) ==
PROVIDERS: Emergency Provider Emergency Medicine; PCP Family Medicine
DX: G43.909 Migraine, unspecified, not intractable, without status migrainosus (principal)
CPT/HCPCS: 96361; 96374; 96375; 99284; J1200; J1885; J2765; J7030

== ENCOUNTER 2024-02-10 02:11 | Emergency (ER) | payer OTHER, SELFPAY ==
[2024-02-10 02:13] VITALS: BP 147/81; PULSE 113; RESP 22; TEMP 36.2; O2SAT 100
--- NOTE | 2024-02-10 02:25 | ED.ANXIETY ---
HPI - Anxiety General Chief Complaint: Anxiety Stated Complaint: anxiety Time Seen by Provider: 02/10/24 02:15 Source: patient Mode of arrival: ambulatory Limitations: no limitations History of Present Illness HPI narrative: 23-year-old female presenting for he anxiety attack. It has been happening a few times over the last few days which she gets very anxious, at short of breath, feels like her chest is tight. When I evaluated her she is very anxious and walking around the room pacing. Says this is not a common experience for her but it does happen occasionally. Related Data Allergies Allergy/AdvReac Type Severity Reaction Status Date / Time No Known Allergies Allergy Unknown Verified 02/10/24 02:12 Review of Systems Review of Systems: All systems reviewed & are unremarkable except as noted in HPI and below PMFSH Past Medical History Medical History (Updated 02/10/24 @ 03:20 by Baljit Deshpande MD) Anxiety No pertinent past medical history Surgical History Surgical History No pertinent past surgical history Family History Family History Mother Family history unknown Father Family history unknown Social History Social History Smoking status: Never smoker Alcohol intake: never Substance use: never Do You Feel Safe in your Home?: Yes Lack of Transportation: No Lack of Food: Never True Current Housing: I Have Housing Concerned About Future Housing: No Difficulty Paying Gas/Electric Bills: No Difficulty Paying for Meds: No Currently Unemployed: No Education: High School Diploma/GED Difficulty w/ Childcare or Family Care: No Additional living arrangements comments: Lives with boyfriend Gender identity (if verbalized by the patient): Female Sexual Orientation (if Verbalized by the Patient): Straight or Heterosexual Spiritual care concerns: No Exam Narrative: Constitutional: anxious appearing. Pacing the room Head: Atraumatic, no deformities. Eyes: Pupils equal, round, and reactive to light. Neck: Supple, no tracheal deviation, no JVD. ENMT: Mucous membranes moist Cardiovascular: S1, S2 auscultated. No murmurs, rubs, or gallops. No S3/S4. Normal Distal pulses. No peripheral edema. Respiratory: Lung sounds equal. No wheezes, rales, or rhonchi. Gastrointestinal: Abdomen was soft and non-tender. Non-distended. No rebound or guarding. Genitourinary: Deferred Musculoskeletal: Normal muscle tone and bulk. No obvious deformities or tenderness over extremities. Skin: No rashes. Neurological: Strength 5/5 in extremities. Cranial nerves I-XII grossly intact. Distal sensation intact. Mental Status: Awake, alert and oriented x3. Follows commands . Anxious. Not suicidal Course Vital Signs Vital signs: Vital Signs Temperature 36.2 C L 02/10/24 02:13 Pulse Rate 113 H 02/10/24 02:13 Respiratory Rate 22 H 02/10/24 02:13 Blood Pressure 147/81 H 02/10/24 02:13 Pulse Oximetry 100 02/10/24 02:13 Oxygen Delivery Room Air 02/10/24 02:13 Temperature 36.2 C L 02/10/24 02:13 Pulse Rate 104 H 02/10/24 02:35 Respiratory Rate 16 02/10/24 02:35 Blood Pressure 142/87 H 02/10/24 02:35 Pulse Oximetry 100 02/10/24 02:35 Oxygen Delivery Room Air 02/10/24 02:35 MDM - Anxiety MDM Narrative Medical decision making narrative: 23-year-old female presenting for anxiety type reaction. On exam she is pacing the room, appears anxious. Slightly tachycardic but exam otherwise unremarkable. The hives suspect anxiety reaction will give her a dose of Xanax and see how she responds. patient is relaxed, calm, stable for discharge. She has follow-up with the PCP today. Pt feeling improved and would like to go home at this point. Return precautions were given to the patient include
[2024-02-10 02:35] VITALS: BP 142/87; PULSE 104; RESP 16; O2SAT 100
[2024-02-10] MEDS: ALPRAZolam (*CRX) 0.5 MG TABLET PO (02:46)
[2024-02-10] MEDS: NAPROXEN 500 MG TABLET PO (03:32)
== END 2024-02-10 03:34 | disposition home or self-care (01) ==
PROVIDERS: Emergency Provider Emergency Medicine; PCP Family Medicine
DX: F41.9 Anxiety disorder, unspecified (principal)
CPT/HCPCS: 99283; A9270

== ENCOUNTER 2024-07-13 09:49 | Emergency (ER) | payer OTHER, SELFPAY ==
--- NOTE | ~2024-07-13 | CT_ITS ---
CT abdomen pelvis w con Ordering provider: Jessica Moura PA-C History: 23 years Female with . abd pain, vomiting, UTI . Comparison: None. Technique: CT abdomen and pelvis with IV and without oral contrast. Automated exposure control and it erative reconstruction technique were employed. The dose-length product was 718.55 mGy-cm. 100 mL Omn ipaque 350 was given IV. Findings: VISUALIZED LOWER CHEST: Normal. UPPER ABDOMINAL ORGANS: Liver: Normal. Tiny cyst seen in the right lobe of the liver. Gallbladder: Normal. Spleen: Normal. Stomach/duodenum: Normal. Pancreas: Normal. Adrenals: Normal. Kidneys: Normal. PELVIC ORGANS: The bladder is slightly underfilled with thickened wall. Left ovarian follicles with t he largest measures 1.9 cm. BOWEL AND MESENTERY: Colon: No evidence of diverticulitis. Fecal material is seen in the colon suggestive of constipation. Normal appendix. Small Bowel: Normal. No obstruction. Peritoneum/mesentery: No free air or free fluid. No mesenteric lymphadenopathy. RETROPERITONEUM: Normal aorta. No retroperitoneal lymphadenopathy. MUSCULOSKELETAL: Superficial soft tissues: The superficial soft tissues are normal. Bones: Normal spine. IMPRESSION: 1. No evidence of appendicitis, diverticulitis or intestinal obstruction. 2. Follicles seen in the left ovary with no evidence of free fluid seen in the pelvis. Reviewed, dictated and finalized at location A. ION JOURNALIST
[2024-07-13 09:59] VITALS: BP 123/78; PULSE 87; RESP 17; TEMP 36.5; O2SAT 99
[2024-07-13 10:34] LABS: BEDSIDEPREGUCG Negative (Negative)
--- NOTE | 2024-07-13 10:37 | ED.ABDPAIN ---
HPI - Abdominal Pain General Chief Complaint: Abdominal Pain Stated Complaint: abd pain Time Seen by Provider: 07/13/24 10:04 Source: patient Mode of arrival: ambulatory Limitations: no limitations History of Present Illness HPI narrative: This is a 23 year old Female that presents to the emergency department for mid abdominal discomfort and nausea. Ongoing over the last week. Does report some vomiting. Denies fevers, diarrhea, dysuria. Related Data Allergies Allergy/AdvReac Type Severity Reaction Status Date / Time No Known Allergies Allergy Unknown Verified 02/10/24 02:12 Review of Systems Review of Systems: CONSTITUTIONAL: Denies fever GASTROINTESTINAL: Reports abdominal pain, nausea, vomiting. Denies diarrhea. GENITOURINARY: Denies dysuria or hematuria. All systems reviewed & are unremarkable except as noted in HPI and below PMFSH Past Medical History Medical History (Updated 07/13/24 @ 12:24 by Jessica Moura PA-C) Anxiety No pertinent past medical history Surgical History Surgical History No pertinent past surgical history Family History Family History Mother Family history unknown Father Family history unknown Social History Social History Smoking status: Never smoker Alcohol intake: never Substance use: never Do You Feel Safe in your Home?: Yes Lack of Transportation: No Lack of Food: Never True Current Housing: I Have Housing Concerned About Future Housing: No Difficulty Paying Gas/Electric Bills: No Difficulty Paying for Meds: No Currently Unemployed: No Education: High School Diploma/GED Difficulty w/ Childcare or Family Care: No Additional living arrangements comments: Lives with boyfriend Gender identity (if verbalized by the patient): Female Sexual Orientation (if Verbalized by the Patient): Straight or Heterosexual Spiritual care concerns: No Exam Narrative: GENERAL: Well-appearing, well-nourished, and in no acute distress. HEAD: Normocephalic, atraumatic. EYES: EOMI. CHEST: Clear to auscultation. No respiratory distress. No wheezes rales or rhonchi HEART: Regular rate and rhythm. No murmur heard. Normal peripheral pulses. ABDOMEN: Soft, nondistended, normal active bowel sounds. Mild tenderness to palpation in the mid abdomen, without guarding EXTREMITIES: Normal range of motion. No edema. SKIN: Warm, dry, no rash. NEURO: No focal deficits. Alert and oriented x3. PSYCH: Normal mood and affect Course Course Emergency Course: patient updated on her workup and agrees with plan of care Vital Signs Vital signs: Vital Signs Temperature 97.7 F 07/13/24 09:59 Pulse Rate 87 07/13/24 09:59 Respiratory Rate 17 07/13/24 09:59 Blood Pressure 123/78 07/13/24 09:59 Pulse Oximetry 99 07/13/24 09:59 Oxygen Delivery Room Air 07/13/24 09:59 Temperature 97.7 F 07/13/24 09:59 Pulse Rate 108 H 07/13/24 11:44 Respiratory Rate 16 07/13/24 11:44 Blood Pressure 128/73 07/13/24 11:44 Pulse Oximetry 100 07/13/24 11:44 Oxygen Delivery Room Air 07/13/24 09:59 MDM - Abdominal Pain MDM Narrative Medical decision making narrative: patient presents to the emergency department for mid abdominal pain, nausea vomiting. She is afebrile and nontoxic appearing. Her vitals are stable. Cbc without leukocytosis. Metabolic panel without concerning findings. Urine with evidence of infection. This will be sent for culture. Patient started on IV antibiotics. CT abdomen and pelvis is without acute findings. Patient was updated on her workup and agrees with plan of care. She is to follow up her provider. She was given warnings to return to the ER Differential Diagnosis Differential diagnosis: Likely calculus of kidney, diverticulitis, gastroenteritis and other ( UTI) Lab Data Attestation: I reviewed the patient's lab results. 07/13/24 10:35 07/13/24 10:35 Labs: Lab Results 07/13/24 07/13/24 Range/Units 10:33 10:35 WBC 8.3 (4.5-10.0) K/mm3 RBC 4.90 (4.2-5.4) M/mm3 Hgb 13.4 D (12.0-15.0) g/dL Hct 42.1 (37.0-47.0) % MCV 85.9 (80-100) fl MCH 27.3 (26-34) pg MCHC 31.8 L (32-36) g/dl RDW 13.6 (11.5-14.5) % Plt Count 293 (150-375) k/mm3 MPV 10.7 H (7.4-10.4) fl Immature Gran % (Auto) 0.2 (0-0.5) % Neut % (Auto) 54.9 (45.5-73.1) % Lymph % (Auto) 33.9 (18.3-44.2) % [place] % (Auto) 8.7 H (2.6-8.5) % Eos % (Auto) 2.1 (0-4.4) % Baso % (Auto) 0.2 (0.2-1.2) % Lymph # (Auto) 2.81 (0.9-3.2) K/mm3 [place] # (Auto) 0.7 H (0.1-0.6) K/mm3 Eos # (Auto) 0.2 (0-0.3) K/mm3 Baso # (Auto) 0.0 (0.0-0.1) K/mm3 Abs Immat Gran (auto) 0.02 (0.00-0.031) K/mm3 Absolute Neuts (auto) 4.5 (1.3-6.7) K/mm3 Absolute Nucleated RBC 0.000 (0.0-0.012) K/mm3 Nucleated RBC % 0.0 (0.0-0.2) % Sodium 141 (137-145) mmol/L Potassium 4.1 (3.4-5.0) mmol/L Chloride 103 (98-107) mmol/L Carbon Dioxide 30 (22-30) mmol/L Anion Gap 8 (4-12) mmol/L BUN 15 D (7-17) mg/dL Creatinine 0.60 L (0.7-1.0) mg/dL Estim Creat Clear Calc 129 ml/min Estimated GFR > 60 (59 - ) Glucose 91 (65-110) mg/dL Calcium 9.0 (8.4-10.2) mg/dL Total Bilirubin 0.4 (0.2-1.3) mg/dL AST 18 (14-36) U/L ALT 13 (6-35) U/L Alkaline Phosphatase 60 (38-126) U/L Total Protein 9.0 H (6.3-8.2) g/dL Albumin 4.9 (3.5-5.1) g/dL Lipase 75 (23-300) U/L Urine Color Yellow (Yellow) Urine Appearance Clear (Clear) Urine pH 6.0 (5.0-9.0) Ur Specific [place] 1.026 (1.001-1.035) Urine Protein Negative (Negative) mg/dL Urine Glucose (UA) Negative (Negative) mg/dL Urine Ketones Negative (Negative) mg/dL Ur Blood (Man) Negative (Negative) Urine Nitrate Positive H (Negative) Urine Bilirubin Negative (Negative) Urine Urobilinogen 0.2 (<2.0) mg/dL Leukocyte Esterase Rfl Trace H (Negative) NANCY/UL Urine RBC 0-2 (0-2) /hpf Urine WBC 6-10 H (0-3) /hpf Ur Squamous Epith Cells Few (Few) /hpf Urine Bacteria 4+ H /hpf Urine Casts 0-2 POC Urine HCG, Qual Negative (Negative) Imaging Data Radiologist's impression: ITS Impressions Abdomen/Pelvis CT 07/13/24 11:39 IMPRESSION: 1. No evidence of appendicitis, diverticulitis or intestinal obstruction. 2. Follicles seen in the left ovary with no evidence of free fluid seen in the pelvis. Critical Care Time Critical Care Time Critical Care Time: No Discharge Plan Discharge Clinical Impression: Acute UTI Patient Disposition: Home, Self-Care Condition: Stable Instructions: Urinary Tract Infection in Women (ED), Abdominal Pain (ED) Additional Instructions: Return to the ER if you experience fever, worsening abdominal pain with nausea and vomiting, you are unable to keep down liquids or solids, blood in the stool, blood in the urine or any other symptoms that are concerning to you Small, frequent meals. [place] diet. Remain well hydrated. Take oral antibiotics as prescribed Follow up with primary care doctor Prescriptions: New cefdinir 300 mg capsule 300 mg PO Q12H 7 Days Qty: 14 0RF No Action ibuprofen 600 mg Tablet 600 mg PO Q6H PRN (Reason: Cramping) Qty: 30 0RF ondansetron 4 mg tablet,disintegrating 4 mg PO Q6H PRN (Reason: nausea and vomiting) Qty: 10 0RF naproxen 500 mg tablet 500 mg PO BID PRN (Reason: pain) Qty: 20 0RF alprazolam [Xanax] 0.25 mg tablet 0.25 mg PO BID PRN (Reason: anxiety) Qty: 3 0RF Follow-up/Referrals: Álvaro,Jose Faulkner MD [Primary Care Provider] -
[2024-07-13 10:43] LABS: Basophils Percent Auto 0.2 % (0.2-1.2); Eosinophils Absolute Auto 0.2 K/mm3 (0-0.3); Eosinophils Percent Auto 2.1 % (0-4.4); Hematocrit 42.1 % (37.0-47.0); Hemoglobin 13.4 g/dL (12.0-15.0); Immature Granulocyte Absolute 0.02 K/mm3 (0.00-0.031); Immature Granulocyte Percent A 0.2 % (0-0.5); Lymphocytes Absolute Auto 2.81 K/mm3 (0.9-3.2); Lymphocytes Percent Auto 33.9 % (18.3-44.2); Mean Corpuscular HGB Conc 31.8 g/dl (32-36); Mean Corpuscular Hemoglobin 27.3 pg (26-34); Mean Corpuscular Volume 85.9 fl (80-100); Mean Platelet Volume 10.7 fl (7.4-10.4); Monocytes Absolute Auto 0.7 K/mm3 (0.1-0.6); Monocytes Percent Auto 8.7 % (2.6-8.5); Neutrophils Absolute Auto 4.5 K/mm3 (1.3-6.7); Neutrophils Percent Auto 54.9 % (45.5-73.1); Platelet Count Result 293 k/mm3 (150-375); Red Cell Distribution Width 13.6 % (11.5-14.5); White Blood Count 8.3 K/mm3 (4.5-10.0)
[2024-07-13 10:48] LABS: Add Urine Microscopic? YES; Appearance Urine Clear (Clear); Bacteria Urine 4+ /hpf; Bilirubin Urine Negative (Negative); Blood Urine Negative (Negative); Color Urine Yellow (Yellow); Glucose Urine UA Negative (Negative); Ketones Urine Negative (Negative); Leukocyte Esterase Ur Trace LEU/UL (Negative); Nitrate Urine Positive (Negative); Non Pathogenic Casts 0-2; Protein Urine Negative (Negative); RBC Urine 0-2 /hpf (0-2); Specific Grav Ur 1.026 (1.001-1.035); Squamous Epithelial Cell Urine Few /hpf (Few); Urobilinogen Urine 0.2 mg/dL (<2.0)
[2024-07-13 10:59] LABS: Alanine Aminotransferase 13 U/L (6-35); Albumin Level 4.9 g/dL (3.5-5.1); Alkaline Phosphatase 60 U/L (38-126); Anion Gap 8 mmol/L (4-12); Aspartate Amino Transferase 18 U/L (14-36); Bilirubin,Total 0.4 mg/dL (0.2-1.3); Blood Urea Nitrogen 15 mg/dL (7-17); Carbon Dioxide 30 mmol/L (22-30); Chloride 103 mmol/L (98-107); Estimated CRCL calculation 129 ml/min; Estimated Glomerular Filt Rate > 60; Glucose 91 mg/dL (65-110); Lipase 75 U/L (23-300); Potassium 4.1 mmol/L (3.4-5.0); Sodium 141 mmol/L (137-145)
[2024-07-13] MEDS: FAMOTIDINE 20 MG/2 ML VIAL IV PUSH (11:41)
[2024-07-13 11:44] VITALS: BP 128/73; PULSE 108; RESP 16; O2SAT 100
--- NOTE | 2024-07-13 11:44 | PC.NURSE ---
Pt denies any nausea. Zofran not administered at this time. Rates lower abdominal pain as 3/10.
[2024-07-13 12:36] VITALS: BP 119/69; PULSE 99; RESP 16; O2SAT 100
== END 2024-07-13 13:00 | disposition home or self-care (01) ==
PROVIDERS: Emergency Provider Physician Assistant; PCP Family Medicine
DX: N39.0 Urinary tract infection, site not specified (principal); F41.9 Anxiety disorder, unspecified
CPT/HCPCS: 36415; 74177; 80053; 81001; 81025; 83690; 85025; 87077; 87086; 87186; 96365; 96375; 99284; J0696; Q9967

== ENCOUNTER 2024-09-04 16:14 | Emergency (ER) | payer OTHER, SELFPAY ==
--- NOTE | ~2024-09-04 | US_ITS ---
US OB <=14 wk fetus w TV Ordering provider: Shannan Zarco PA-C History: . 5 weeks, bleeding/pain . Comparison: None. Technique: Transabdominal and endovaginal ultrasound of the pelvis (Doppler ultrasound interrogation techniques used as needed for this exam.) FINDINGS: CERVIX: Normal. UTERUS: Measures 9.9x 5.3 x 4.1 cm in length which is within normal limits and is anteverted. No ollie metrial masses. No intrauterine seen. ENDOMETRIUM: Normal in thickness measuring 5.2 mm. No endometrial masses, cysts or fluid. CUL DE SAC: No free fluid. RIGHT OVARY: Normal in size measuring 3.1x 1.9x 1.8 Normal echotexture. Doppler vascular flow present . LEFT OVARY: Normal in size measuring 2.9x 1.4x 3.5 Normal echotexture. Doppler vascular flow present. ADNEXA: Normal. No mass. IMPRESSION: No intrauterine seen. Follow-up Otherwise, normal pelvic ultrasound. Reviewed, dictated and finalized at location A. STMENT BANKER
[2024-09-04 16:46] VITALS: BP 136/81; PULSE 101; RESP 18; TEMP 36.3; O2SAT 100
[2024-09-04 19:32] VITALS: BP 125/83; PULSE 95; RESP 18; O2SAT 100
[2024-09-04 20:00] LABS: Basophils Percent Auto 0.3 % (0.2-1.2); Eosinophils Absolute Auto 0.2 K/mm3 (0-0.3); Eosinophils Percent Auto 1.4 % (0-4.4); Hematocrit 41.2 % (37.0-47.0); Hemoglobin 13.7 g/dL (12.0-15.0); Immature Granulocyte Absolute 0.02 K/mm3 (0.00-0.031); Immature Granulocyte Percent A 0.2 % (0-0.5); Lymphocytes Absolute Auto 4.14 K/mm3 (0.9-3.2); Lymphocytes Percent Auto 36.1 % (18.3-44.2); Mean Corpuscular HGB Conc 33.3 g/dl (32-36); Mean Corpuscular Hemoglobin 27.5 pg (26-34); Mean Corpuscular Volume 82.7 fl (80-100); Mean Platelet Volume 10.1 fl (7.4-10.4); Monocytes Absolute Auto 0.8 K/mm3 (0.1-0.6); Monocytes Percent Auto 7.1 % (2.6-8.5); Neutrophils Absolute Auto 6.3 K/mm3 (1.3-6.7); Neutrophils Percent Auto 54.9 % (45.5-73.1); Platelet Count Result 356 k/mm3 (150-375); Red Blood Count 4.98 M/mm3 (4.2-5.4); Red Cell Distribution Width 13.2 % (11.5-14.5); White Blood Count 11.5 K/mm3 (4.5-10.0)
[2024-09-04 20:07] LABS: Add Urine Microscopic? YES; Appearance Urine Clear (Clear); Bacteria Urine None Seen /hpf; Bilirubin Urine Negative (Negative); Blood Urine 2+ (Negative); Color Urine Yellow (Yellow); Glucose Urine UA Negative (Negative); Ketones Urine Negative (Negative); Leukocyte Esterase Ur Negative LEU/UL (Negative); Nitrate Urine Negative (Negative); Non Pathogenic Casts 0-2; Protein Urine Negative (Negative); RBC Urine 0-2 /hpf (0-2); Specific Grav Ur 1.012 (1.001-1.035); Squamous Epithelial Cell Urine Occasional /hpf (Few); Urobilinogen Urine 0.2 mg/dL (<2.0); WBC Urine 0-5 /hpf (0-3); pH Urine 6.5 (5.0-9.0)
[2024-09-04 20:12] LABS: INR 0.9; Prothrombin Time 12.8 Seconds (11.1-14.7)
[2024-09-04 20:13] LABS: Alanine Aminotransferase 14 U/L (6-35); Albumin Level 4.8 g/dL (3.5-5.1); Alkaline Phosphatase 66 U/L (38-126); Anion Gap 3 mmol/L (4-12); Aspartate Amino Transferase 20 U/L (14-36); Bilirubin,Total 0.4 mg/dL (0.2-1.3); Blood Urea Nitrogen 8 mg/dL (7-17); Calcium 9.2 mg/dL (8.4-10.2); Carbon Dioxide 30 mmol/L (22-30); Chloride 106 mmol/L (98-107); Estimated CRCL calculation 130 ml/min; Estimated Glomerular Filt Rate > 60; Glucose 89 mg/dL (65-110); Partial Thromboplastin Time 27.5 Seconds (22.3-36.8); Potassium 3.8 mmol/L (3.4-5.0); Sodium 139 mmol/L (137-145)
[2024-09-04 20:29] LABS: Beta HCG Quantitative 16.28 mIU/ML
[2024-09-04 21:02] VITALS: BP 118/81; PULSE 97; RESP 18; O2SAT 100
--- NOTE | 2024-09-04 21:52 | ED.PREGNANCY ---
HPI - General Chief complaint: Vaginal Bleeding Stated complaint: Vag Bleeding, 5 Weeks Time Seen by Provider: 09/04/24 19:27 Source: patient Mode of arrival: ambulatory Limitations: no limitations History of Present Illness HPI Narrative: Patient is a 23-year-old female who presents the ED with report of vaginal bleeding. Patient reports she is approximately 5 weeks gestation, . Had a positive test last week after being late on her cycle. Began having slight vaginal bleeding yesterday, was pink at 1st. Became heavier last night and she began passing some blood clots with lower abdominal cramping. She noted having a large blood clot upon waking up this morning. Bleeding has slowed somewhat today but she is still passing some clots. Denies significant pain at this time. Denies nausea, vomiting, fevers. OBGYN is Dr. Wheat with [facility]. Related Data Allergies Allergy/AdvReac Type Severity Reaction Status Date / Time No Known Allergies Allergy Unknown Verified 02/10/24 02:12 Review of Systems Review of Systems: All systems reviewed & are unremarkable except as noted in HPI. All systems reviewed & are unremarkable except as noted in HPI and below PMFSH Past Medical History Medical History Anxiety No pertinent past medical history Surgical History Surgical History No pertinent past surgical history Family History Family History Mother Family history unknown Father Family history unknown Social History Social History Smoking status: Never smoker Alcohol intake: never Substance use: never Do You Feel Safe in your Home?: Yes Lack of Transportation: No Lack of Food: Never True Current Housing: I Have Housing Concerned About Future Housing: No Difficulty Paying Gas/Electric Bills: No Difficulty Paying for Meds: No Currently Unemployed: No Education: High School Diploma/GED Difficulty w/ Childcare or Family Care: No Additional living arrangements comments: Lives with boyfriend Gender identity (if verbalized by the patient): Female Sexual Orientation (if Verbalized by the Patient): Straight or Heterosexual Spiritual care concerns: No Exam Narrative: GENERAL: Well appearing, obese with BMI of 33.0, non-toxic, in no acute distress. HEAD: Normocephalic, atraumatic. RESPIRATORY: Airway patent, respirations nonlabored. Clear to auscultation bilaterally, no rales, rhonchi, wheezing. CARDIOVASCULAR: Regular rate and rhythm without murmurs, rubs, or gallops. ABDOMINAL: Soft, no significant tenderness throughout abdomen, nondistended. Normoactive BS. MUSCULOSKELETAL: Moves all extremities. No gross deformities. SKIN: Warm, dry, normal color. NEURO: A&O X3. Speech clear. PSYCHIATRIC: Appropriate mood and affect. Normal interaction. Course Vital Signs Vital signs: Vital Signs Temperature 97.4 F L 09/04/24 16:46 Pulse Rate 101 H 09/04/24 16:46 Respiratory Rate 18 09/04/24 16:46 Blood Pressure 136/81 09/04/24 16:46 Pulse Oximetry 100 09/04/24 16:46 Oxygen Delivery Room Air 09/04/24 16:46 Temperature 97.4 F L 09/04/24 16:46 Pulse Rate 93 09/04/24 22:38 Respiratory Rate 18 09/04/24 22:38 Blood Pressure 118/81 09/04/24 22:38 Pulse Oximetry 100 09/04/24 22:38 Oxygen Delivery Room Air 09/04/24 16:46 MDM - OB/Uterine Contractions MDM Narrative Medical decision making narrative: Patient presented to ED with vaginal bleeding, currently approximately 5 weeks gestation, bleeding started last night with clots. Vital signs are stable upon arrival. Patient is in no acute distress. Cbc with blood cell count of 11.5. Stable H&H. CMP is unremarkable. Urinalysis with small amount of blood, no signs of infection. Patient's blood type is A positive, no indication for RhoGAM. Beta-hCG is only 16.28. Pelvic ultrasound was obtained to rule out ectopic. No IUP noted. No other significant abnormalities. No ectopic. Good vascular blood flow to bilateral ovaries. Patient was updated on lab and imaging findings, diagnosis of threatened miscarriage versus spontaneous versus very early . Advised she will need to have repeat beta hCG on Friday, close follow-up with OBGYN for further evaluation. Will place ambulatory order for repeat lab testing. Patient is in agreement with this. Advised to monitor bleeding, given strict return precautions. She is in agreement with plan and feels comfortable w/ discharge home. Discharged in stable condition. Vital signs stable at time of D/C. Medical Records Attestation: I reviewed the patient's medical records. Lab Data Attestation: I reviewed the patient's lab results. 09/04/24 19:53 09/04/24 19:53 Labs: Lab Results 09/04/24 Range/Units 19:53 WBC 11.5 H (4.5-10.0) K/mm3 RBC 4.98 (4.2-5.4) M/mm3 Hgb 13.7 (12.0-15.0) g/dL Hct 41.2 (37.0-47.0) % MCV 82.7 (80-100) fl MCH 27.5 (26-34) pg MCHC 33.3 (32-36) g/dl RDW 13.2 (11.5-14.5) % Plt Count 356 (150-375) k/mm3 MPV 10.1 (7.4-10.4) fl Immature Gran % (Auto) 0.2 (0-0.5) % Neut % (Auto) 54.9 (45.5-73.1) % Lymph % (Auto) 36.1 (18.3-44.2) % [place] % (Auto) 7.1 (2.6-8.5) % Eos % (Auto) 1.4 (0-4.4) % Baso % (Auto) 0.3 (0.2-1.2) % Lymph # (Auto) 4.14 H (0.9-3.2) K/mm3 [place] # (Auto) 0.8 H (0.1-0.6) K/mm3 Eos # (Auto) 0.2 (0-0.3) K/mm3 Baso # (Auto) 0.0 (0.0-0.1) K/mm3 Abs Immat Gran (auto) 0.02 (0.00-0.031) K/mm3 Absolute Neuts (auto) 6.3 (1.3-6.7) K/mm3 Absolute Nucleated RBC 0.000 (0.0-0.012) K/mm3 Nucleated RBC % 0.0 (0.0-0.2) % PT 12.8 (11.1-14.7) Seconds INR 0.9 APTT 27.5 (22.3-36.8) Seconds Sodium 139 (137-145) mmol/L Potassium 3.8 (3.4-5.0) mmol/L Chloride 106 (98-107) mmol/L Carbon Dioxide 30 (22-30) mmol/L Anion Gap 3 L (4-12) mmol/L BUN 8 D (7-17) mg/dL Creatinine 0.60 L (0.7-1.0) mg/dL Estim Creat Clear Calc 130 ml/min Estimated GFR > 60 (59 - ) Glucose 89 (65-110) mg/dL Calcium 9.2 (8.4-10.2) mg/dL Total Bilirubin 0.4 (0.2-1.3) mg/dL AST 20 (14-36) U/L ALT 14 (6-35) U/L Alkaline Phosphatase 66 (38-126) U/L Total Protein 9.0 H (6.3-8.2) g/dL Albumin 4.8 (3.5-5.1) g/dL Beta HCG, Quant 16.28 mIU/ML Urine Color Yellow (Yellow) Urine Appearance Clear (Clear) Urine pH 6.5 (5.0-9.0) Ur Specific [place] 1.012 (1.001-1.035) Urine Protein Negative (Negative) mg/dL Urine Glucose (UA) Negative (Negative) mg/dL Urine Ketones Negative (Negative) mg/dL Ur Blood (Man) 2+ H (Negative) Urine Nitrate Negative (Negative) Urine Bilirubin Negative (Negative) Urine Urobilinogen 0.2 (<2.0) mg/dL Leukocyte Esterase Rfl Negative (Negative) NANCY/UL Urine RBC 0-2 (0-2) /hpf Urine WBC 0-5 (0-3) /hpf Ur Squamous Epith Cells Occasional (Few) /hpf Urine Bacteria None seen /hpf Urine Casts 0-2 Blood Type A Positive Antibody Screen Negative Screen TNP Baby's Blood Type TNP Baby's NICOLASA Not Reportable Doses of RhIg Required 0 Imaging Data Attestation: I personally reviewed and interpreted this imaging study as follows: Radiologist's impression: ITS Impressions Obstetrics Ultrasound 09/04/24 21:40 IMPRESSION: No intrauterine seen. Follow-up Otherwise, normal pelvic ultrasound. Discharge Plan Discharge Clinical Impression: Threatened miscarriage Patient Disposition: Home, Self-Care Condition: Stable Instructions: Antibiotic Form, Miscarriage (ED), Threatened Miscarriage (ED) Additional Instructions: Obtain repeat hormone level on Friday. You may go to the outpatient lab at the front of the hospital for this. Take lab order sheet with you. You will need to follow-up with your OBGYN for continued management and care. Call office to Friday to inform of bleeding. Continue to monitor bleeding. Return to the ED if you experience worsening or severe pain or bleeding, passing out, feeling very dizzy, unable to keep down food or drink, fevers, or any other symptoms of concern. Patient Language: Citizen Of [place] Prescriptions: No Action ibuprofen 600 mg Tablet 600 mg PO Q6H PRN (Reason: Cramping) Qty: 30 0RF ondansetron 4 mg tablet,disintegrating 4 mg PO Q6H PRN (Reason: nausea and vomiting) Qty: 10 0RF naproxen 500 mg tablet 500 mg PO BID PRN (Reason: pain) Qty: 20 0RF alprazolam [Xanax] 0.25 mg tablet 0.25 mg PO BID PRN (Reason: anxiety) Qty: 3 0RF cefdinir 300 mg capsule 300 mg PO Q12H 7 Days Qty: 14 0RF Other Ambulatory Orders: Beta HCG Quantitative (DAILY) Timeframe: [id number] Location: Determined by Patient Ordered By: Shannan Zarco Follow-up/Referrals: Álvaro,Jose Faulkner MD [Primary Care Provider] - Time of Disposition: 22:17
[2024-09-04 22:38] VITALS: BP 118/81; PULSE 93; RESP 18; O2SAT 100
== END 2024-09-04 22:38 | disposition home or self-care (01) ==
PROVIDERS: Emergency Provider Physician Assistant; PCP Family Medicine
DX: O20.0 Threatened abortion (principal); F41.9 Anxiety disorder, unspecified; Z3A.01 Less than 8 weeks gestation of pregnancy
CPT/HCPCS: 36415; 76801; 76817; 80053; 81001; 84702; 85025; 85461; 85610; 85730; 86850; 86900; 86901; 99284

== ENCOUNTER 2025-03-05 22:33 | Observation (INO) | payer OTHER, SELFPAY ==
[2025-03-05 22:43] VITALS: BMI 34.6
--- NOTE | 2025-03-05 22:53 | OBADM ---
This patient, Emma Neville, admitted to the OB room OB Post [facility] for observation. Patient/family oriented to hospital policies and general routines including ID bracelet, bed and alarms, visiting hours, pain management, procedures, bathroom and other care routines, personal items, smoking policy, room service/diet, and visiting hours. Patient/Family are encouraged to report perceived risks to care and to ask questions if they do not understand what they are told or what they should do.
[2025-03-05 23:00] VITALS: TEMP 36.7
[2025-03-05 23:04] VITALS: BP 122/70; PULSE 97
[2025-03-05 23:16] VITALS: BP 109/59; PULSE 87
[2025-03-05 23:31] VITALS: BP 107/64; PULSE 83
[2025-03-05 23:37] LABS: Add Urine Microscopic? YES; Appearance Urine Clear (Clear); Glucose Urine UA 1+ mg/dL (Negative); Leukocyte Esterase Ur 1+ LEU/UL (Negative); Nitrate Urine Negative (Negative); Non Pathogenic Casts 0-2; Specific Grav Ur 1.025 (1.001-1.035)
[2025-03-05 23:45] VITALS: BP 112/68; PULSE 91
--- NOTE | 2025-03-05 23:59 | PC.NURSE ---
Pt discharged home undelivered in stable condition per order from Dr. Dubois. Discharge instructions explained to pt, pt stated understanding, all questions and concerns answered. Pt ambulated out of department with all belongings, family @ pt side.
--- NOTE | 2025-03-29 16:31 | PM.OBTRLD ---
OB - Triage/Final Diagnosis Visit Information Comments/Additional reasons for admission: I have assessed the risk for this patient, Emma Neville, and determined that she would benefit from observation care. Evaluation Laboratory results: Laboratory Tests 03/05/25 23:13 Urine Color Yellow Urine Appearance Clear Urine pH 5.5 Ur Specific [place] 1.025 Urine Protein Negative Urine Glucose (UA) 1+ H Urine Ketones Trace H Ur Blood (Man) Negative Urine Nitrate Negative Urine Bilirubin Negative Urine Urobilinogen 0.2 Leukocyte Esterase Rfl 1+ H Urine RBC 0-2 Urine WBC 11-20 H Ur Squamous Epith Cells Moderate Urine Bacteria Rare Urine Casts 0-2 Final Diagnosis (1) Back pain affecting : Code(s): O99.891 - Other specified diseases and conditions complicating ; M54.9 - Dorsalgia, unspecified Status: Acute (2) Sciatica: Code(s): M54.30 - Sciatica, unspecified side Status: Acute
== END 2025-03-05 23:59 | disposition home or self-care (01) ==
PROVIDERS: Admitting Provider Obstetrics & Gynecology; PCP Family Medicine; Visit Provider Obstetrics & Gynecology
DX: O99.891 Other specified diseases and conditions complicating pregnancy (principal); M54.9 Dorsalgia, unspecified; M54.30 Sciatica, unspecified side; Z3A.26 26 weeks gestation of pregnancy
CPT/HCPCS: 81001; G0378; G0379

== ENCOUNTER 2025-05-07 21:24 | Emergency (ER) | payer OTHER, SELFPAY ==
--- NOTE | ~2025-05-07 | XR_ITS ---
EXAMINATION: XR chest 1V, 05/07/2025 22:42 CDT HISTORY: CHEST PAIN COMPARISON: No comparisons available. Technique: Single view. Findings: The lungs are clear, no effusion. No pneumothorax. Heart is normal size. Mediastinal and hilar contours are within normal limits. Bony thorax no acute abnormality. Impression: No acute cardiopulmonary abnormality. Reviewed, dictated and finalized at location A. Impression: No acute cardiopulmonary abnormality.
--- NOTE | 2025-05-07 21:32 | ECG_ITS ---
Test Date: 2025-05-07 21:36:29 Measurements Intervals [place] Rate: 106 P: 35 MD: 138 QRS: 48 QRSD: 77 T: -10 QT: 295 QTc: 393 Interpretive Statements SINUS TACHYCARDIA MODERATE T-WAVE ABNORMALITY, CONSIDER ANTERIOR ISCHEMIA [-0.1+ mV T-WAVE IN V3/V4] No previous ECG available for comparison Electronically Signed On 05-08-2025 15:55:26 CDT by Richard Pina M.D.
[2025-05-07 21:33] VITALS: BP 124/84; PULSE 120; RESP 18; TEMP 36.8; O2SAT 99
[2025-05-07 22:02] LABS: Hematocrit 33.8 % (37.0-47.0); Hemoglobin 10.8 g/dL (12.0-15.0); Immature Granulocyte Percent A 1.1 % (0-0.5); Lymphocytes Absolute Auto 2.01 K/mm3 (0.9-3.2); Mean Corpuscular HGB Conc 32.0 g/dl (32-36); Mean Corpuscular Hemoglobin 26.5 pg (26-34); Mean Corpuscular Volume 83.0 fl (80-100); Nucleated Red Blood Cells Absolute Auto 0.000 K/mm3 (0.0-0.012); Nucleated Red Blood Cells Perc 0.0 % (0.0-0.2); Platelet Count Result 206 k/mm3 (150-375); Red Blood Count 4.07 M/mm3 (4.2-5.4); White Blood Count 13.2 K/mm3 (4.5-10.0)
[2025-05-07 22:12] LABS: Alanine Aminotransferase 15 U/L (6-35); Albumin Level 3.8 g/dL (3.5-5.1); Alkaline Phosphatase 123 U/L (38-126); Anion Gap 8 mmol/L (4-12); Aspartate Amino Transferase 23 U/L (14-36); Bilirubin,Total 0.3 mg/dL (0.2-1.3); Blood Urea Nitrogen 6 mg/dL (7-17); Calcium 8.8 mg/dL (8.4-10.2); Carbon Dioxide 22 mmol/L (22-30); Chloride 104 mmol/L (98-107); Estimated Glomerular Filt Rate > 60; Glucose 94 mg/dL (65-110); Lipase 68 U/L (23-300); Magnesium 1.5 mg/dL (1.6-2.3); Potassium 3.7 mmol/L (3.4-5.0); Sodium 134 mmol/L (137-145); Total Protein 7.5 g/dL (6.3-8.2)
[2025-05-07 22:15] LABS: INR 1.0; Prothrombin Time 13.3 Seconds (11.1-14.7)
[2025-05-07 22:16] LABS: Partial Thromboplastin Time 25.2 Seconds (22.3-36.8)
[2025-05-07 22:24] LABS: Troponin I < 0.012 ng/mL (0.000-0.034)
[2025-05-07 23:28] VITALS: O2SAT 99
[2025-05-07 23:29] VITALS: PULSE 120
[2025-05-07 23:30] VITALS: O2SAT 99
[2025-05-07 23:32] VITALS: BP 131/91; PULSE 126; RESP 16; O2SAT 97
[2025-05-08] MEDS: SODIUM CHLORIDE 0.9% IV 1,000 ML 999 ML IV CONT (00:20)
--- NOTE | 2025-05-08 00:58 | ECG_ITS ---
Test Date: 2025-05-08 01:00:43 Measurements Intervals [place] Rate: 105 P: 24 CA: 148 QRS: 46 QRSD: 71 T: -18 QT: 321 QTc: 425 Interpretive Statements SINUS TACHYCARDIA MODERATE T-WAVE ABNORMALITY, CONSIDER ANTERIOR ISCHEMIA [-0.1+ mV T-WAVE IN V3/V4] Compared to ECG 05/07/2025 21:36:29 No significant changes Electronically Signed On 05-08-2025 16:00:44 CDT by Richard Pina M.D.
[2025-05-08 01:29] LABS: Troponin I < 0.012 ng/mL (0.000-0.034)
--- NOTE | 2025-05-08 02:04 | ED.CHESTPAIN ---
HPI - Chest Pain General Chief Complaint: Chest Pain Stated Complaint: squeezing chest pain x1 week Time Seen by Provider: 05/08/25 00:36 History of Present Illness HPI narrative: Patient is a 24-year-old female who presents emergency department this evening complaining of chest pain that she has had on off for the past week. She is approximately 35 weeks . Patient was initially evaluated by OB and then sent down for further evaluation regarding her chest pain. Denies any recent illness, fevers or chills, denies any shortness of breath. Patient states she has been having bad acid reflux throughout this and has only been taking times nothing else. Denies any additional symptoms or concerns. Related Data Allergies Allergy/AdvReac Type Severity Reaction Status Date / Time No Known Allergies Allergy Unknown Verified 03/05/25 23:29 Review of Systems Review of Systems: All systems are reviewed and are negative unless stated otherwise in the HPI. [facility] Past Medical History Medical History Anxiety No pertinent past medical history Surgical History Surgical History No pertinent past surgical history Family History Family History Mother Family history unknown Father Family history unknown Social History Social History Smoking status: Never smoker Alcohol intake: never Substance use: never Do You Feel Safe in your Home?: Yes Lack of Transportation: No Lack of Food: Never True Current Housing: I Have Housing Concerned About Future Housing: No Difficulty Paying Gas/Electric Bills: No Difficulty Paying for Meds: No Currently Unemployed: YES Education: High School Diploma/GED Difficulty w/ Childcare or Family Care: No Additional living arrangements comments: Lives with boyfriend Gender identity (if verbalized by the patient): Female Sexual Orientation (if Verbalized by the Patient): Straight or Heterosexual Spiritual care concerns: No Exam Narrative: General: Alert, awake, afebrile, in no acute distress. HEENT: PERRL, no rhinorrhea, no post nasal drip, oropharynx clear. Neck: Trachea midline, no JVD, no lymphadenopathy. Cardiovascular: Regular rate and rhythm, no murmurs, rubs or gallops, no peripheral edema. Respiratory: Clear to auscultation bilaterally, no tachypnea, no wheezing, no rhonchi, no rubs, no respiratory distress. Abdomen: Soft, nontender, nondistended, no rebound, no guarding, no peritoneal signs. Musculoskeletal: No joint swelling or deformity, normal muscle tone. Skin: No rashes or petechia, no signs of infection. Psychiatric: Alert and oriented, normal behavior and judgment for situation. Neurological: Alert and oriented to person, place, and time. Follows all commands. No focal deficits, speech is clear and fluent. Course Vital Signs Vital signs: Vital Signs Temperature 98.2 F 05/07/25 21:33 Pulse Rate 120 H 05/07/25 21:33 Respiratory Rate 18 05/07/25 21:33 Blood Pressure 124/84 05/07/25 21:33 Pulse Oximetry 99 05/07/25 21:33 Oxygen Delivery Room Air 05/07/25 21:33 Temperature 98.2 F 05/07/25 21:33 Pulse Rate 97 05/08/25 02:11 Respiratory Rate 16 05/07/25 23:32 Blood Pressure 131/91 H 05/07/25 23:32 Pulse Oximetry 97 05/07/25 23:32 Oxygen Delivery Room Air 05/07/25 23:30 MDM - Chest Pain MDM Narrative Medical decision making narrative: The patient was evaluated by myself in the emergency department. History is obtained from patient who is an independent historian and physical exam was performed. External medical records were reviewed at this time. IV was established and pertinent tests were ordered. Patient was administered 20 mg of IV Pepcid at this time. EKG was obtained which revealed sinus tachycardia rate of 106 beats per minute otherwise no acute process. EKG was independently interpreted by me and is currently pending official cardiology read. Laboratory results obtained revealing mild leukocytosis of 13.2 otherwise no acute process. Two sets of troponins were obtained and both noted to be negative. Imaging studies obtained included CXR which was independently interpreted by me revealing no acute process, which is pending final radiology interpretation. Differential diagnosis considerations include acute viral syndrome, fatigue ulcer disease, GERD, infectious process such as pneumonia, costochondritis. Comorbidities impacting this visit include current at 35 weeks. I have evaluated and discussed social determinants of health with the patient that could potentially impact subsequent diagnosis and treatment plans. On repeat assessment of the patient, reevaluation revealed that the patient is doing well and is in no acute distress. Patient symptoms have improved since she arrived to our emergency department. Repeat vital signs were all reviewed and noted to be stable. Differential diagnosis and treatment plan were discussed with the patient at bedside. Patient agrees with discussion and after shared medical decision making agrees with discharge. All questions were answered to the patient's satisfaction. Patient will follow up with her PCP/ OB in 3-5 days. Patient was provided with strict return precautions and instructed to return to the emergency department if any new or worsening symptoms develop. The patient was discharged in stable condition. Lab Data 05/07/25 21:56 05/07/25 21:56 Labs: Lab Results 05/07/25 05/08/25 Range/Units 21:56 00:55 WBC 13.2 H (4.5-10.0) K/mm3 RBC 4.07 L (4.2-5.4) M/mm3 Hgb 10.8 L (12.0-15.0) g/dL Hct 33.8 L (37.0-47.0) % MCV 83.0 (80-100) fl MCH 26.5 (26-34) pg MCHC 32.0 (32-36) g/dl RDW 13.2 (11.5-14.5) % Plt Count 206 (150-375) k/mm3 MPV 10.8 H (7.4-10.4) fl Immature Gran % (Auto) 1.1 H (0-0.5) % Neut % (Auto) 74.3 H (45.5-73.1) % Lymph % (Auto) 15.2 L (18.3-44.2) % [place] % (Auto) 8.3 (2.6-8.5) % Eos % (Auto) 0.9 (0-4.4) % Baso % (Auto) 0.2 (0.2-1.2) % Lymph # (Auto) 2.01 (0.9-3.2) K/mm3 [place] # (Auto) 1.1 H (0.1-0.6) K/mm3 Eos # (Auto) 0.1 (0-0.3) K/mm3 Baso # (Auto) 0.0 (0.0-0.1) K/mm3 Abs Immat Gran (auto) 0.14 H (0.00-0.031) K/mm3 Absolute Neuts (auto) 9.8 H (1.3-6.7) K/mm3 Absolute Nucleated RBC 0.000 (0.0-0.012) K/mm3 Nucleated RBC % 0.0 (0.0-0.2) % PT 13.3 (11.1-14.7) Seconds INR 1.0 APTT 25.2 (22.3-36.8) Seconds Sodium 134 L (137-145) mmol/L Potassium 3.7 (3.4-5.0) mmol/L Chloride 104 (98-107) mmol/L Carbon Dioxide 22 (22-30) mmol/L Anion Gap 8 (4-12) mmol/L BUN 6 L (7-17) mg/dL Creatinine 0.50 L (0.7-1.0) mg/dL Estim Creat Clear Calc Not Reportable Estimated GFR > 60 (59 - ) Glucose 94 (65-110) mg/dL Calcium 8.8 (8.4-10.2) mg/dL Magnesium 1.5 L (1.6-2.3) mg/dL Total Bilirubin 0.3 (0.2-1.3) mg/dL AST 23 (14-36) U/L ALT 15 (6-35) U/L Alkaline Phosphatase 123 (38-126) U/L Troponin I < 0.012 < 0.012 (0.000-0.034) ng/mL Total Protein 7.5 (6.3-8.2) g/dL Albumin 3.8 (3.5-5.1) g/dL Lipase 68 (23-300) U/L Discharge Plan Discharge Clinical Impression: Chest pain Patient Disposition: Home Condition: Improved Instructions: Antibiotic Form, Chest Pain (ED) Additional Instructions: Please follow-up with your family doctor/OB within the next 3-5 days. Return emergency department if any new or worsening symptoms develop. Patient Language: Hungarian Follow-up/Referrals: Álvaro,Jose Faulkner MD [Primary Care Provider, Unknown] - 3 Days Time of Disposition: 02:07
[2025-05-08 02:11] VITALS: PULSE 97
[2025-05-08] MEDS: FAMOTIDINE 20 MG/2 ML VIAL IV PUSH (02:50)
== END 2025-05-08 02:59 | disposition home or self-care (01) ==
PROVIDERS: Emergency Provider Emergency Medicine; PCP Family Medicine
DX: O99.891 Other specified diseases and conditions complicating pregnancy (principal); R07.9 Chest pain, unspecified; R94.31 Abnormal electrocardiogram [ECG] [EKG]; R00.0 Tachycardia, unspecified; Z3A.35 35 weeks gestation of pregnancy
CPT/HCPCS: 36415; 71045; 80053; 83690; 83735; 84484; 85025; 85610; 85730; 93005; 96361; 96374; 99284; J7030